=== PATIENT | female | born 1975 | race Caucasian/White ===

== ENCOUNTER 2017-07-13 22:59 | Inpatient (IN) | payer MEDICAID ==
[~2017-07-13] VITALS: Ht 165.1 cm; Wt 65.5 kg
[~2017-07-13 22:59] MED LIST: CAT2P TD; CHLO25CA10 PO; CLIN300C85 PO; CLON-529 PO; CLON0.1T20 PO; DIPH-518 PO; DIPH25CA83 PO; LOPE-155 PO; LOPE2CAP PO; NO HOME MEDS; ONDA4TAB12 PO; PROM25TA14 PO; TRAM50TA2 PO
[2017-07-14] MEDS ORDERED: ketorolac trometh. 30mg/ml inj. IV ONE (00:25)
[2017-07-14] MEDS ORDERED: metoclopramide 5 mg/ml inj IV ONE (00:25)
[2017-07-14] MEDS ORDERED: diphenhydrAMINE 50 mg/ml inj IV ONE (00:25)
[2017-07-14] MEDS ORDERED: albuterol 2.5 MG/3 ML nebule NEB ONE (00:25)
[2017-07-14] MEDS ORDERED: methylPREDNISolone sod succ 125mg/2ml vial IV ONE (00:25)
[2017-07-14] MEDS ORDERED: albuterol 2.5 MG/3 ML nebule ONE (00:51)
[2017-07-14 01:27] LABS: CLARITY,URINE CLEAR (Clear); COLOR,URINE YELLOW (Yellow); GLUCOSE, URINE NEGATIVE (Neg); KETONES,URINE NEGATIVE (Neg); LEUKOCYTE ESTERASE ,URINE NEGATIVE (Neg); NITRITES, URINE NEGATIVE (Neg); OCCULT BLOOD,URINE NEGATIVE (Neg); PH,URINE 6.5 (4.8-8.0); PROTEIN,URINE NEGATIVE (Neg); UROBILINOGEN,URINE 0.2 E.U/dL (0.2-1.0)
[2017-07-14 01:28] LABS: UA COLLECTION TYPE CLN CATCH MIDSTREAM
[2017-07-14 01:30] LABS: URINE HCG NEGATIVE (NEG)
[2017-07-14 01:39] LABS: URINE AMPHETAMINE SCREEN NEGATIVE (Neg); URINE BARBITUATE SCREEN NEGATIVE (Neg); URINE BENZODIAZEPINES SCREEN NEGATIVE (Neg); URINE CANNABINOID SCREEN NEGATIVE (Neg); URINE COCAINE SCREEN NEGATIVE (Neg); URINE METHADONE SCREEN NEGATIVE (Neg); URINE OPIATE SCREEN POSITIVE (Neg); URINE PHENCYCLIDINE SCREEN NEGATIVE (Neg)
[2017-07-14] MEDS ORDERED: iohexol 350MG/ML 100ml bottle IV ONE (01:57)
[2017-07-14 02:03] LABS: ALBUMIN 3.9 G/DL (3.4-5.0); ANION GAP 9 (8-16); BLOOD UREA NITROGEN 6 MG/DL (7-18); CALCIUM 8.8 MG/DL (8.5-10.1); CHLORIDE 102 MMOL/L (99-107); CREATININE 0.67 MG/DL (0.40-0.90); GLUCOSE 129 MG/DL (70-104); POTASSIUM 4.3 MMOL/L (3.5-5.1); SODIUM 140 MMOL/L (135-145); TOTAL CARBON DIOXIDE 28.6 MMOL/L (24-32); eGFR > 90 ML/MIN
[2017-07-14 02:13] LABS: BASOPHILS % (AUTO) 0.7 % (0-1); EOSINOPHILS # (AUTO) 0.3 X10'3 (0-0.9); HEMATOCRIT 44.9 % (35.0-45.0); HEMOGLOBIN 15.2 g/dl (12.0-16.0); LYMPHOCYTES # (AUTO) 1.5 X10'3 (1.1-4.8); LYMPHOCYTES % (AUTO) 24.3 % (21-51); MEAN CORPUSCULAR HGB CONC 33.9 % (33.0-36.5); MEAN CORPUSCULAR VOLUME 88.4 FL (78-98); MEAN PLATELET VOLUME 9.7 FL (7.4-10.4); MONOCYTES # (AUTO) 0.4 X10'3 (0-0.9); MONOCYTES % (AUTO) 7.2 % (2-12); NEUTROPHILS # (AUTO) 3.8 X10'3 (1.8-7.7); NEUTROPHILS % (AUTO) 62.8 % (42-75); PLATELET COUNT 196 X10'3 (140-440); RED BLOOD COUNT 5.08 X10'6 (4.20-5.60); RED CELL DISTRIBUTION WIDTH 13.1 % (11.5-14.5); WHITE BLOOD COUNT 6.1 X10'3 (4.5-11.0)
[2017-07-14 02:41] LABS: ABG BASE EXCESS 0.9 mmol/L (-2.0-3.0); ABG HCO3 25.1 mmol/L (22.0-26.0); ABG OXYGEN SATURATION 91.1 % (95-98); ABG PCO2 (T) 37.8 mmHg (32.0-45.0); ABG PH (T) 7.437 (7.350-7.450); ABG PO2 (T) 56.4 mmHg (83-108); ALLEN'S TEST Positive; FCOHb 5.3 % (0.5-1.5); FLOW 5 L/min; FMetHb 0.2 % (0.3-1.12); FO2Hb 86.1 % (94-100); PATIENT TEMPERATURE 36.3; TOTAL HEMOGLOBIN 14.5 G/dl (12.0-16.0)
[2017-07-14] MEDS ORDERED: levoFLOXACIN-Levaquin 750MG/D5 150 ML IV STA (03:48)
[2017-07-14] MEDS ORDERED: mag hydrox/Alum hydrox/simeth 30ml oral suspension PO PRN (04:40)
[2017-07-14] MEDS ORDERED: acetaminophen 325mg tablet PO PRN (04:40)
[2017-07-14] MEDS ORDERED: magnesium hydroxide 30ml (MOM) UD suspension PO PRN (04:40)
[2017-07-14] MEDS ORDERED: ondansetron/PF 4mg/2ml inj IV PRN (04:40)
[2017-07-14 05:40] VITALS: BP 110/66
[2017-07-14] MEDS ORDERED: PRED20TA PO (06:13)
[2017-07-14] MEDS ORDERED: LEVO750T21 PO (06:13)
[2017-07-14] MEDS ORDERED: ALBU8HFA PO (06:15)
[2017-07-14] MEDS ORDERED: heparin, porcine 5000 units/ml vial SQ SCH (08:00)
== END 2017-07-14 06:30 | disposition left against medical advice (07) | DRG 144 ==
LOC: ER 23:00 → ED HOLD 07-14 04:39 → CANBEDREQ 07-14 05:00
PROVIDERS: ADMIT Internal Medicine; ATTEND Internal Medicine
PROC: B3201ZZ Computerized Tomography (CT Scan) of Thoracic Aorta using Low Osmolar Contrast (ICD-10-PCS; principal; 2017-07-14)
PROC: B32T1ZZ Computerized Tomography (CT Scan) of Left Pulmonary Artery using Low Osmolar Contrast (ICD-10-PCS; 2017-07-14)
PROC: B32S1ZZ Computerized Tomography (CT Scan) of Right Pulmonary Artery using Low Osmolar Contrast (ICD-10-PCS; 2017-07-14)
DX: R09.02 Hypoxemia (principal); D58.2 Other hemoglobinopathies; F41.9 Anxiety disorder, unspecified; F17.200 Nicotine dependence, unspecified, uncomplicated; F12.90 Cannabis use, unspecified, uncomplicated; F11.90 Opioid use, unspecified, uncomplicated; G43.909 Migraine, unspecified, not intractable, without status migrainosus; J45.909 Unspecified asthma, uncomplicated; F14.90 Cocaine use, unspecified, uncomplicated; Z53.21 Procedure and treatment not carried out due to patient leaving prior to being seen by health care provider; Z88.5 Allergy status to narcotic agent
CPT/HCPCS: 36415; 36600; 71045; 71275; 80048; 80305; 81003; 81025; 82803; 83605; 85018; 85025; 87040; 94640; 94760; 99285; J1200; J1885; J1956; J2765; J2930; J7030; Q9967

== ENCOUNTER 2018-10-15 12:50 | Emergency (ER) | payer MEDICAID ==
[~2018-10-15] VITALS: Ht 165.1 cm; Wt 61.4 kg
[~2018-10-15 12:50] MED LIST changes: +CLIN-96 PO; -CLIN300C85 PO; -LOPE-155 PO; +LOPE-190 PO
[2018-10-15 12:53] VITALS: BP 116/66
--- NOTE | 2018-10-15 14:04 | NUR ---
Per ED JACINTO Olivera's request, I placed both of patient's feet in a warm water diluted Betadine foot soak. Started at 1400.
[2018-10-15] MEDS ORDERED: mupirocin 2% ointment 22GM TP STA (14:57)
== END 2018-10-15 15:05 | disposition home or self-care (01) ==
LOC: ER 12:51
DX: L60.0 Ingrowing nail (principal); G43.909 Migraine, unspecified, not intractable, without status migrainosus; J45.909 Unspecified asthma, uncomplicated; F41.9 Anxiety disorder, unspecified; I25.10 Atherosclerotic heart disease of native coronary artery without angina pectoris; F12.90 Cannabis use, unspecified, uncomplicated; F11.90 Opioid use, unspecified, uncomplicated; F14.90 Cocaine use, unspecified, uncomplicated; Z56.0 Unemployment, unspecified; Z88.5 Allergy status to narcotic agent; Z98.890 Other specified postprocedural states; Z79.2 Long term (current) use of antibiotics; Z79.899 Other long term (current) drug therapy
CPT/HCPCS: 11765; 99283

== ENCOUNTER 2018-12-22 13:31 | Emergency (ER) | payer MEDICAID ==
[~2018-12-22] VITALS: Ht 165.1 cm; Wt 63.6 kg
[~2018-12-22 13:31] MED LIST changes: +CLIN-90 PO; -CLIN-96 PO; +CLON0.1T2 PO; -CLON0.1T20 PO
[2018-12-22 14:09] LABS: BASOPHILS % (AUTO) 1.1 % (0-1); EOSINOPHILS # (AUTO) 0.1 X10'3 (0-0.9); EOSINOPHILS % (AUTO) 3.9 % (0-6); HEMOGLOBIN 14.6 g/dl (12.0-16.0); LYMPHOCYTES # (AUTO) 1.1 X10'3 (1.1-4.8); LYMPHOCYTES % (AUTO) 29.9 % (21-51); MEAN CORPUSCULAR HEMOGLOBIN 30.6 PG (27.0-31.0); MEAN CORPUSCULAR VOLUME 90.1 FL (78-98); MEAN PLATELET VOLUME 9.1 FL (7.4-10.4); MONOCYTES # (AUTO) 0.3 X10'3 (0-0.9); MONOCYTES % (AUTO) 7.9 % (2-12); NEUTROPHILS % (AUTO) 57.2 % (42-75); PLATELET COUNT 212 X10'3 (140-440); RED BLOOD COUNT 4.77 X10'6 (4.20-5.60); RED CELL DISTRIBUTION WIDTH 12.9 % (11.5-14.5); WHITE BLOOD COUNT 3.5 X10'3 (4.5-11.0)
[2018-12-22 14:26] LABS: ALANINE AMINOTRANSFERASE 34 U/L (12-78); ALBUMIN 4.1 G/DL (3.4-5.0); ALKALINE PHOSPHATASE 65 IU/L (46-116); ANION GAP 6 (8-16); ASPARTATE AMINO TRANSFERASE 29 U/L (10-37); BILIRUBIN,TOTAL 0.3 MG/DL (0.1-1.0); BLOOD UREA NITROGEN 6 MG/DL (7-18); BUN/CREATININE RATIO 10.2 (6.6-38.0); CALCIUM 9.6 MG/DL (8.5-10.1); CHLORIDE 104 MMOL/L (99-107); CREATININE 0.59 MG/DL (0.40-0.90); GLUCOSE 98 MG/DL (70-104); POTASSIUM 4.2 MMOL/L (3.5-5.1); SODIUM 140 MMOL/L (135-145); TOTAL CARBON DIOXIDE 30.5 MMOL/L (24-32); TOTAL PROTEIN 8.2 G/DL (6.4-8.2); eGFR > 90 ML/MIN
[2018-12-22] MEDS ORDERED: PRED50TA PO (14:51)
[2018-12-22] MEDS ORDERED: ALBU18HF2 INH (14:51)
[2018-12-22] MEDS ORDERED: ipratropium/albuterol 3ml nebule NEB ONE (15:10)
[2018-12-22 15:14] VITALS: BP 130/73
== END 2018-12-22 17:01 | disposition home or self-care (01) ==
LOC: ER 13:32
DX: R06.02 Shortness of breath (principal); G43.909 Migraine, unspecified, not intractable, without status migrainosus; J45.909 Unspecified asthma, uncomplicated; F41.9 Anxiety disorder, unspecified; F12.90 Cannabis use, unspecified, uncomplicated; F14.90 Cocaine use, unspecified, uncomplicated; F19.90 Other psychoactive substance use, unspecified, uncomplicated; Z98.890 Other specified postprocedural states; Z90.89 Acquired absence of other organs; Z56.0 Unemployment, unspecified; Z88.5 Allergy status to narcotic agent; Z79.2 Long term (current) use of antibiotics; Z79.899 Other long term (current) drug therapy
CPT/HCPCS: 36415; 71045; 80053; 84484; 85025; 93005; 99284

== ENCOUNTER 2022-10-30 19:51 | Emergency (ER) | payer MEDICAID ==
[~2022-10-30] VITALS: Ht 165.1 cm; Wt 73.2 kg
[~2022-10-30 19:51] MED LIST changes: +ALBU18HF2 INH; -CLIN-90 PO; +CLIN-97 PO; +PRED50TA PO
[2022-10-30 20:01] VITALS: BP 137/82; PULSE 66; RESP 18; TEMP 97.8; O2SAT 95
== END 2022-10-30 23:56 | disposition left against medical advice (07) ==
LOC: ER 19:52
DX: R21 Rash and other nonspecific skin eruption (principal); Z53.21 Procedure and treatment not carried out due to patient leaving prior to being seen by health care provider
CPT/HCPCS: 99281

== ENCOUNTER 2022-11-11 20:53 | Emergency (ER) | payer MEDICAID ==
[~2022-11-11] VITALS: Ht 165.1 cm; Wt 80.0 kg
[2022-11-11 21:10] VITALS: BP 126/76; PULSE 75; RESP 16; TEMP 97.9; O2SAT 96
[2022-11-11] MEDS ORDERED: BUPIVAcaine 0.5% W/EPI /PF 10ml vial IJ STA (21:45)
[2022-11-11] MEDS ORDERED: cephalexin 250mg capsule PO ONE (22:30)
[2022-11-11] MEDS ORDERED: SULF1TAB49 PO (22:33)
[2022-11-11] MEDS ORDERED: NAPR-56 PO (22:33)
[2022-11-11] MEDS ORDERED: CEPH-585 PO (22:33)
== END 2022-11-11 22:50 | disposition home or self-care (01) ==
LOC: ER 20:54
DX: L60.0 Ingrowing nail (principal); F31.9 Bipolar disorder, unspecified; J45.909 Unspecified asthma, uncomplicated; G43.909 Migraine, unspecified, not intractable, without status migrainosus; F12.10 Cannabis abuse, uncomplicated; F11.10 Opioid abuse, uncomplicated; Z56.0 Unemployment, unspecified
CPT/HCPCS: 99283

== ENCOUNTER 2024-03-27 10:50 | Emergency (ER) | payer MEDICAID ==
[~2024-03-27] VITALS: Ht 165.1 cm; Wt 79.9 kg
[~2024-03-27 10:50] MED LIST changes: -CAT2P TD; +CLON1PAT42 TD; +ONDA-243 PO; -ONDA4TAB12 PO
[2024-03-27 13:32] VITALS: TEMP 97.2
[2024-03-27] MEDS: acetaminophen 325mg tablet PO ONE (14:15)
[2024-03-27] MEDS: albuterol 2.5 MG/3 ML nebule NEB ONE (14:21)
[2024-03-27 14:22] VITALS: PULSE 76; PULSE 86; RESP 18; RESP 19; O2SAT 92; O2SAT 96
[2024-03-27] MEDS ORDERED: BENZ-38 PO (16:18)
[2024-03-27 16:29] VITALS: BP 110/73; PULSE 70; RESP 16; O2SAT 94
== END 2024-03-27 16:31 | disposition home or self-care (01) ==
LOC: ER 10:51
DX: J22 Unspecified acute lower respiratory infection (principal); R05.9 Cough, unspecified; J45.909 Unspecified asthma, uncomplicated; I25.10 Atherosclerotic heart disease of native coronary artery without angina pectoris; F17.210 Nicotine dependence, cigarettes, uncomplicated; F12.90 Cannabis use, unspecified, uncomplicated; F14.90 Cocaine use, unspecified, uncomplicated; F11.90 Opioid use, unspecified, uncomplicated; F41.9 Anxiety disorder, unspecified; G43.909 Migraine, unspecified, not intractable, without status migrainosus; Z90.89 Acquired absence of other organs; Z98.890 Other specified postprocedural states; Z88.8 Allergy status to other drugs, medicaments and biological substances; Z88.5 Allergy status to narcotic agent; Z79.899 Other long term (current) drug therapy; Z20.822 Contact with and (suspected) exposure to COVID-19
CPT/HCPCS: 36415; 71046; 87502; 87503; 87811; 94640; 94760; 99284